=== PATIENT | female | born 1935 | race Caucasian/White ===

== ENCOUNTER → 2020-12-15 | Outpatient (CLI) | payer OTHER ==
[~2020-12-15] MED LIST: AMOXICILLIN250 MG PO; LOSARTAN POTAS100 MG PO; OXYBUTYNIN CHLOR5 MG PO; PREDNISONE20 MG PO; ROPINIROLE HCL1 MG PO; TRICOR145 MG PO
== END ==
LOC: CARD 10:18
PROVIDERS: ATTEND Family Medicine
DX: R55 Syncope and collapse (principal); R42 Dizziness and giddiness
CPT/HCPCS: 93880